=== PATIENT | female | born 1935 | race Caucasian/White ===

== ENCOUNTER 2016-12-15 07:44 | Day surgery (SDC) | payer OTHER ==
[~2016-12-15] VITALS: Ht 154.9 cm; Wt 66.0 kg
[~2016-12-15 07:44] MED LIST: ALBU8.5H3 INH; ASPI-496 PO; ASPI1CPM9 PO; ATOR10TA PO; LORA10TA75 PO; OMEP20CA9 PO
[2016-12-15 08:13] VITALS: BP 114/73
[2016-12-15] MEDS ORDERED: LACTATED RINGERS 1,000 ML IV SCH (08:15)
[2016-12-15] MEDS ORDERED: BUPIVACAINE/PF-EPI 0.5% 1:200K ONE (08:46)
[2016-12-15] MEDS ORDERED: FENTANYL PF 250 MCG/5ML ONE (11:13)
[2016-12-15] MEDS ORDERED: HYDROmorphone 1 MG/ML, 1ML IV PRN (11:30)
[2016-12-15] MEDS ORDERED: LABETALOL 5MG/ML, 20ML IV PRN (11:30)
[2016-12-15] MEDS ORDERED: hydrALAzine 20 MG/ML, 1ML IV PRN (11:30)
[2016-12-15] MEDS ORDERED: ONDANSETRON 2MG/ML, 2ML IVPush PRN (11:30)
[2016-12-15] MEDS ORDERED: ACETAMINOPHEN 325 MG TABLET PO PRN (11:30)
[2016-12-15] MEDS ORDERED: METOCLOPRAMIDE 5 MG/ML, 2ML IV PRN (11:30)
[2016-12-15] MEDS ORDERED: PROMETHAZINE 25 MG/ML, 1ML IV PRN (11:30)
[2016-12-15] MEDS ORDERED: MIDAZOLAM 1 MG/ML, 2ML IV PRN (11:30)
[2016-12-15] MEDS ORDERED: MEPERIDINE/PF 25MG/0.5ML IVPush PRN (11:30)
[2016-12-15] MEDS ORDERED: ALBUTEROL/IPRATROPIUM 2.5MG/0.5MG, 3 ML ONE (12:17)
[2016-12-15] MEDS ORDERED: OXYcodone 5 MG/5 ML ORAL.SOL UDC ONE ×2 (12:24→12:49)
[2016-12-15] MEDS ORDERED: FENTANYL PF 100 MCG/2ML ONE (12:24)
[2016-12-15] MEDS: FENTANYL PF 100 MCG/2ML IV PRN ×2 (12:26→12:36)
[2016-12-15] MEDS: OXYcodone 5 MG/5 ML ORAL.SOL UDC PO PRN ×2 (12:28→12:54)
[2016-12-15] MEDS ORDERED: HYDROmorphone 2 MG/ML, 1ML ONE (12:46)
[2016-12-15] MEDS ORDERED: ONDANSETRON 2MG/ML, 2ML ONE ×3 (12:52→15:19)
[2016-12-15] MEDS ORDERED: NEOSTIGMINE 1 MG/ML, 10ML ONE (15:19)
[2016-12-15] MEDS ORDERED: CEFAZOLIN 1,000 MG ONE (15:19)
[2016-12-15] MEDS ORDERED: DEXAMETHASONE 4 MG/ML, 1ML ONE (15:19)
[2016-12-15] MEDS ORDERED: SUCCINYLCHOLINE 20 MG/ML, 10ML ONE (15:19)
[2016-12-15] MEDS ORDERED: ROCURONIUM 10 MG/ML ONE (15:19)
[2016-12-15] MEDS ORDERED: KETOROLAC 30 MG/1 ML ONE (15:19)
[2016-12-15] MEDS ORDERED: GLYCOPYRROLATE 0.2MG/1ML ONE (15:19)
[2016-12-15] MEDS ORDERED: PROPOFOL 10 MG/ML, 20ML ONE (15:19)
[2016-12-15] MEDS ORDERED: PHENYLEPHRINE 10 MG/ML ONE (15:19)
[2016-12-15] MEDS ORDERED: DIPHENHYDRAMINE 50 MG/ML, 1ML ONE (16:10)
[2016-12-15] MEDS ORDERED: DIPHENHYDRAMINE 50 MG/ML, 1ML IVPush PRN (16:30)
== END 2016-12-15 17:40 | disposition home or self-care (01) ==
LOC: OUT 07:44
PROVIDERS: ATTEND Colon & Rectal Surgery
DX: K81.1 Chronic cholecystitis (principal); J45.909 Unspecified asthma, uncomplicated; E78.5 Hyperlipidemia, unspecified; Z86.73 Personal history of transient ischemic attack (TIA), and cerebral infarction without residual deficits; J44.9 Chronic obstructive pulmonary disease, unspecified; K21.9 Gastro-esophageal reflux disease without esophagitis; F17.210 Nicotine dependence, cigarettes, uncomplicated; Z90.710 Acquired absence of both cervix and uterus; Z98.49 Cataract extraction status, unspecified eye; Z96.1 Presence of intraocular lens; Z82.3 Family history of stroke; Z81.8 Family history of other mental and behavioral disorders; Z80.1 Family history of malignant neoplasm of trachea, bronchus and lung
CPT/HCPCS: 47562; 88304; 93005; 94640; J0330; J0690; J1100; J1170; J1200; J1885; J2370; J2405; J2704; J2710; J3010; J7120; J3490

== ENCOUNTER → 2018-11-01 | Outpatient (CLI) | payer MEDICARE ==
[~2018-11-01] MED LIST changes: -ALBU8.5H3 INH; +ALBU8.5H8 INH; +AZEL137S4 NAS; +FEXO180T72 PO; +PSEU120T9 PO
[2018-11-01 15:15] LABS: ALANINE AMINOTRANSFERASE 11 U/L (12-78); ALBUMIN 3.4 g/dL (3.4-5.0); ANION GAP 6 mmol/L (5-15); CALCIUM 9.3 mg/dL (8.5-10.1); CHLORIDE 105 mmol/L (98-107); CREATININE 0.91 mg/dL (0.55-1.02)
[2018-11-01 15:16] LABS: BASOPHILS # (AUTO) 0.03 x10^3/uL (0-0.1); BASOPHILS % (AUTO) 0 % (0-1); EOSINOPHILS # (AUTO) 0.18 x10^3/uL (0-0.4); EOSINOPHILS % (AUTO) 2 % (1-7); LYMPHOCYTES # (AUTO) 2.74 x10^3/uL (1-3.4); LYMPHOCYTES % (AUTO) 32 % (22-44); MD NO; MEAN CORPUSCULAR HEMOGLOBIN 30.6 pg (27.0-34.8); MEAN CORPUSCULAR HGB CONC 32.9 g/dL (32.4-35.8); MEAN CORPUSCULAR VOLUME 92.9 fL (80-100); MEAN PLATELET VOLUME 8.1 fL (7.4-10.4); MONOCYTES # (AUTO) 0.72 x10^3/uL (0.2-0.8); MONOCYTES % (AUTO) 8 % (2-9); NEUTROPHILS # (AUTO) 4.96 x10^3/uL (1.8-6.8); NEUTROPHILS % (AUTO) 58 % (42-75); PLATELET COUNT 258 x10^3/uL (130-400); RED BLOOD COUNT 5.25 x10^6/uL (3.82-5.3); RED CELL DISTRIBUTION WIDTH 13.3 % (9.6-15.2)
[2018-11-01 15:17] LABS: ALKALINE PHOSPHATASE 82 U/L (45-117); BILIRUBIN,TOTAL 0.3 mg/dL (0.2-1.0); TOTAL PROTEIN 7.1 g/dL (6.4-8.2)
[2018-11-01 15:22] LABS: INTERNATIONAL NORMALIZED RATIO 1.02 (0.93-1.1); PROTHROMBIN TIME 10.8 Seconds (9.6-11.5)
== END | disposition home or self-care (01) ==
LOC: STAR 14:19
PROVIDERS: ATTEND Surgery
DX: Z01.818 Encounter for other preprocedural examination (principal)
CPT/HCPCS: 36415; 80053; 85025; 85610; 93005

== ENCOUNTER 2018-11-08 08:56 | Day surgery (SDC) | payer MEDICARE ==
[~2018-11-08] VITALS: Ht 154.9 cm; Wt 62.3 kg
[2018-11-08] MEDS ORDERED: LACTATED RINGERS 1,000 ML IV SCH (09:05)
[2018-11-08 09:29] VITALS: BP 107/67
[2018-11-08] MEDS ORDERED: ACETAMINOPHEN 500 MG TABLET PO ONE (09:30)
[2018-11-08] MEDS ORDERED: GABAPENTIN 300 MG CAPSULE PO ONE (09:30)
[2018-11-08] MEDS ORDERED: BUPIVACAINE/PF-EPI 0.5% 1:200K ONE (10:02)
[2018-11-08] MEDS ORDERED: ISOSULFAN BLUE 10 MG/ML, 5ML IV ONE (10:02)
[2018-11-08] MEDS ORDERED: METHYLENE BLUE 10 MG/ML 10ML ONE (10:02)
[2018-11-08] MEDS ORDERED: FENTANYL PF 250 MCG/5ML ONE (11:36)
[2018-11-08] MEDS ORDERED: DEXAMETHASONE 4 MG/ML, 1ML ONE (12:45)
[2018-11-08] MEDS ORDERED: HALOPERIDOL 5 MG/ML IV PRN (13:30)
[2018-11-08] MEDS ORDERED: PROMETHAZINE 25 MG/ML, 1ML IV PRN (13:30)
[2018-11-08] MEDS ORDERED: LABETALOL 5MG/ML, 20ML IV PRN (13:30)
[2018-11-08] MEDS ORDERED: PROCHLORPERAZINE 5 MG/ML, 2ML IV PRN (13:30)
[2018-11-08] MEDS ORDERED: HYDROmorphone 2 MG/ML, 1ML IVPush PRN (13:30)
[2018-11-08] MEDS ORDERED: MEPERIDINE/PF 25MG/0.5ML IVPush PRN (13:30)
[2018-11-08] MEDS ORDERED: DIPHENHYDRAMINE 50 MG/ML, 1ML IVPush PRN (13:30)
[2018-11-08] MEDS ORDERED: METOPROLOL 1 MG/ML, 5ML IV PRN (13:30)
[2018-11-08] MEDS ORDERED: OXYcodone 5 MG/5 ML ORAL.SOL UDC PO PRN (13:30)
[2018-11-08] MEDS ORDERED: hydrALAzine 20 MG/ML, 1ML IV PRN (13:30)
[2018-11-08] MEDS ORDERED: CEFAZOLIN 1,000 MG ONE (13:45)
[2018-11-08] MEDS ORDERED: GLYCOPYRROLATE 0.2MG/1ML, 5ML ONE (13:45)
[2018-11-08] MEDS ORDERED: PROPOFOL 10 MG/ML, 20ML ONE (13:45)
[2018-11-08] MEDS ORDERED: ONDANSETRON 2MG/ML, 2ML ONE (13:45)
[2018-11-08] MEDS ORDERED: NEOSTIGMINE 1 MG/ML, 10ML ONE (13:45)
[2018-11-08] MEDS ORDERED: ROCURONIUM 10MG/ML,5ML ONE (13:45)
[2018-11-08] MEDS ORDERED: SUCCINYLCHOLINE 20 MG/ML, 10ML ONE (13:46)
[2018-11-08] MEDS ORDERED: FENTANYL PF 100 MCG/2ML ONE (14:44)
[2018-11-08] MEDS ORDERED: OXYcodone 5 MG/5 ML ORAL.SOL UDC ONE (14:44)
[2018-11-08] MEDS: FENTANYL PF 100 MCG/2ML IV PRN ×2 (14:48→14:59)
[2018-11-08] MEDS ORDERED: ONDANSETRON ODT 4 MG ONE (18:16)
== END 2018-11-08 18:45 | disposition home or self-care (01) ==
LOC: OUT 08:56 → EDSTATUS 11:00 → OUT 18:45
PROVIDERS: ATTEND Surgery
DX: C50.912 Malignant neoplasm of unspecified site of left female breast (principal); R59.1 Generalized enlarged lymph nodes; J44.9 Chronic obstructive pulmonary disease, unspecified; Z86.73 Personal history of transient ischemic attack (TIA), and cerebral infarction without residual deficits; Z98.890 Other specified postprocedural states; Z98.49 Cataract extraction status, unspecified eye; Z90.49 Acquired absence of other specified parts of digestive tract; Z90.710 Acquired absence of both cervix and uterus; Z88.6 Allergy status to analgesic agent; Z88.0 Allergy status to penicillin; Z88.8 Allergy status to other drugs, medicaments and biological substances; F17.210 Nicotine dependence, cigarettes, uncomplicated
CPT/HCPCS: 19301; 38525; 38792; 88305; 88307; A9541; J0330; J0690; J1100; J2405; J2704; J2710; J3010; J3490; J7120; Q9968

== ENCOUNTER → 2018-11-26 | Outpatient (CLI) | payer MEDICARE | END | disposition home or self-care (01) | LOC: ROC 08:30 | PROVIDERS: ATTEND Radiology Radiation Oncology | DX: C50.312 Malignant neoplasm of lower-inner quadrant of left female breast (principal); J44.9 Chronic obstructive pulmonary disease, unspecified; F17.210 Nicotine dependence, cigarettes, uncomplicated; Z88.6 Allergy status to analgesic agent; Z88.0 Allergy status to penicillin; Z90.49 Acquired absence of other specified parts of digestive tract; Z90.710 Acquired absence of both cervix and uterus; Z90.12 Acquired absence of left breast and nipple; Z86.73 Personal history of transient ischemic attack (TIA), and cerebral infarction without residual deficits | CPT/HCPCS: 99214; G0463 ==

== ENCOUNTER 2018-12-20 10:43 | Observation (INO) | payer MEDICARE ==
[~2018-12-20] VITALS: Ht 154.9 cm; Wt 61.7 kg
--- NOTE | 2018-12-20 10:54 | NUR ---
CONTACT WITH PT, 83 YR OLD FEMALE HERE WITH C/O "RECTAL BLEEDING" BEGAN THIS AM. "THE PROBLEM STARTED LAST NIGHT WITH SEVERE CRAMPS IN MY STOMACH. ALL OF A SUDDEN, I HAD PRESSURE, WITHIN A HALF HOUR, IT PURGED MY SYSTEM, BUT IT WAS NORMAL (STOOL COLOR CONSISTENCY) ABOUT AN HOUR AGO I STARTED GETTING MILD CRAMPS. THE STOOL WAS COATED WITH BLOOD"
[2018-12-20] MEDS ORDERED: ANAS1TAB PO (11:00)
[2018-12-20] MEDS ORDERED: SODIUM CHLORIDE FLUSH 10ML SYR IVF ONE (11:30)
[2018-12-20 11:43] LABS: BASOPHILS # (AUTO) 0.02 x10^3/uL (0-0.1); BASOPHILS % (AUTO) 0 % (0-1); EOSINOPHILS # (AUTO) 0.12 x10^3/uL (0-0.4); EOSINOPHILS % (AUTO) 1 % (1-7); LYMPHOCYTES % (AUTO) 18 % (22-44); MD NO; MEAN CORPUSCULAR HEMOGLOBIN 30.1 pg (27.0-34.8); MEAN CORPUSCULAR HGB CONC 32.9 g/dL (32.4-35.8); MEAN CORPUSCULAR VOLUME 91.7 fL (80-100); MEAN PLATELET VOLUME 8.1 fL (7.4-10.4); MONOCYTES # (AUTO) 0.92 x10^3/uL (0.2-0.8); MONOCYTES % (AUTO) 10 % (2-9); NEUTROPHILS # (AUTO) 6.71 x10^3/uL (1.8-6.8); NEUTROPHILS % (AUTO) 71 % (42-75); PLATELET COUNT 179 x10^3/uL (130-400); RED BLOOD COUNT 5.15 x10^6/uL (3.82-5.3); RED CELL DISTRIBUTION WIDTH 14.3 % (9.6-15.2)
[2018-12-20 11:51] LABS: INTERNATIONAL NORMALIZED RATIO 0.98 (0.93-1.1); PROTHROMBIN TIME 10.3 Seconds (9.6-11.5)
[2018-12-20 11:52] LABS: ALANINE AMINOTRANSFERASE 14 U/L (12-78); ALBUMIN 3.5 g/dL (3.4-5.0); ANION GAP 6 mmol/L (5-15); CHLORIDE 108 mmol/L (98-107)
[2018-12-20 11:55] LABS: ALKALINE PHOSPHATASE 73 U/L (45-117); BILIRUBIN,TOTAL 0.7 mg/dL (0.2-1.0); CREATININE 0.89 mg/dL (0.55-1.02); TOTAL PROTEIN 6.7 g/dL (6.4-8.2)
[2018-12-20] MEDS ORDERED: OMNIPAQUE 350 MG/ML, 100ML BOTTLE ONE (12:34)
--- NOTE | 2018-12-20 13:12 | NUR ---
PT TO BATHROOM, GAIT SLOW AND STEADY
--- NOTE | 2018-12-20 14:54 | NUR ---
REPORT CALLED TO RAQUEL GLEASON, POC DISCUSSED.
[2018-12-20] MEDS ORDERED: ENALAPRILAT 1.25 MG/ML, 2ML IVPush PRN (15:00)
[2018-12-20] MEDS ORDERED: ACETAMINOPHEN 325 MG TABLET PO PRN (15:00)
[2018-12-20] MEDS ORDERED: LABETALOL 5MG/ML, 20ML IVPush PRN (15:00)
[2018-12-20] MEDS ORDERED: ONDANSETRON 2MG/ML, 2ML IVPush PRN (15:00)
[2018-12-20] MEDS ORDERED: NICOTINE 14MG/24 HR PATCH.TD24 TD SCH (15:00)
--- NOTE | 2018-12-20 15:03 | NUR ---
PTS SON'S NAME IS [facility] [phone]
[2018-12-20 15:39] VITALS: BP 128/72
[2018-12-20 19:47] VITALS: BP 119/63
[2018-12-20] MEDS: D5%-0.9% NACL 1,000 ML IV SCH (19:52)
[2018-12-20] MEDS: metroNIDAZOLE 500 MG TABLET PO SCH (20:21)
[2018-12-20] MEDS ORDERED: CIPROFLOXACIN 500 MG TABLET PO SCH (21:00)
[2018-12-21 01:33] VITALS: BP 97/56
[2018-12-21] MEDS: D5%-0.9% NACL 1,000 ML IV SCH (04:46)
[2018-12-21] MEDS: metroNIDAZOLE 500 MG TABLET PO SCH ×2 (04:46→13:39)
[2018-12-21 06:26] LABS: BASOPHILS # (AUTO) 0.01 x10^3/uL (0-0.1); BASOPHILS % (AUTO) 0 % (0-1); EOSINOPHILS # (AUTO) 0.17 x10^3/uL (0-0.4); EOSINOPHILS % (AUTO) 2 % (1-7); LYMPHOCYTES # (AUTO) 1.44 x10^3/uL (1-3.4); LYMPHOCYTES % (AUTO) 20 % (22-44); MD NO; MEAN CORPUSCULAR HGB CONC 32.5 g/dL (32.4-35.8); MEAN CORPUSCULAR VOLUME 92.2 fL (80-100); MEAN PLATELET VOLUME 8.7 fL (7.4-10.4); MONOCYTES % (AUTO) 8 % (2-9); NEUTROPHILS # (AUTO) 4.98 x10^3/uL (1.8-6.8); NEUTROPHILS % (AUTO) 69 % (42-75); PLATELET COUNT 135 x10^3/uL (130-400); RED BLOOD COUNT 3.81 x10^6/uL (3.82-5.3); RED CELL DISTRIBUTION WIDTH 14.5 % (9.6-15.2)
[2018-12-21 06:34] LABS: CHLORIDE 123 mmol/L (98-107); CREATININE 0.87 mg/dL (0.55-1.02)
[2018-12-21 06:44] VITALS: BP 102/69
[2018-12-21 06:54] LABS: ANION GAP 7 mmol/L (5-15)
[2018-12-21 07:17] LABS: CALCIUM 5.9 mg/dL (8.5-10.1)
[2018-12-21] MEDS ORDERED: CIPROFLOXACIN/PMX 400MG/200ML 200 ML IV SCH (07:30)
[2018-12-21 07:58] LABS: ANION GAP 3 mmol/L (5-15); CHLORIDE 114 mmol/L (98-107); CREATININE 0.71 mg/dL (0.55-1.02)
[2018-12-21] MEDS ORDERED: OMEPRAZOLE 20 MG CAPSULE.DR PO SCH (09:00)
[2018-12-21] MEDS ORDERED: CIPR500T3 PO (13:22)
[2018-12-21] MEDS ORDERED: METR500T PO (13:22)
== END 2018-12-21 14:45 | disposition home or self-care (01) ==
LOC: ED 12:37 → EDIP 14:02 → INTOOBSV 14:02 → 3NE 15:09 → DCLOUNGE 12-21 14:32
PROVIDERS: ADMIT Hospitalist; ATTEND Hospitalist
DX: K52.9 Noninfective gastroenteritis and colitis, unspecified (principal); K62.5 Hemorrhage of anus and rectum; K92.1 Melena; R19.7 Diarrhea, unspecified; C50.919 Malignant neoplasm of unspecified site of unspecified female breast; F17.210 Nicotine dependence, cigarettes, uncomplicated; I11.0 Hypertensive heart disease with heart failure; I21.9 Acute myocardial infarction, unspecified; I25.10 Atherosclerotic heart disease of native coronary artery without angina pectoris; I50.9 Heart failure, unspecified; K55.9 Vascular disorder of intestine, unspecified; N39.3 Stress incontinence (female) (male); Z85.3 Personal history of malignant neoplasm of breast; Z86.010 Personal history of colon polyps; Z86.73 Personal history of transient ischemic attack (TIA), and cerebral infarction without residual deficits; Z87.11 Personal history of peptic ulcer disease; Z90.49 Acquired absence of other specified parts of digestive tract; Z90.710 Acquired absence of both cervix and uterus
CPT/HCPCS: 36415; 74174; 80048; 80053; 82962; 85025; 85610; 85730; 96361; 96365; 99284; G0378; J0744; J7042; Q9967

== ENCOUNTER 2019-01-21 09:34 | Outpatient (CLI) | payer MEDICARE ==
[~2019-01-21 09:34] MED LIST changes: +ANAS1TAB PO; +CIPR500T3 PO; +METR500T PO
== END 2019-01-21 23:59 | disposition home or self-care (01) ==
LOC: CFH 09:34
PROVIDERS: ATTEND Radiology Radiation Oncology
DX: Z12.2 Encounter for screening for malignant neoplasm of respiratory organs (principal); J98.4 Other disorders of lung; I25.10 Atherosclerotic heart disease of native coronary artery without angina pectoris; F17.210 Nicotine dependence, cigarettes, uncomplicated
CPT/HCPCS: G0297

== ENCOUNTER 2019-08-22 09:11 | Emergency (ER) | payer MEDICARE ==
[~2019-08-22] VITALS: Ht 154.9 cm; Wt 63.0 kg
[2019-08-22 09:17] VITALS: BP 126/64
--- NOTE | 2019-08-22 09:26 | NUR ---
PT HERE FOR PAIN TO LEFT ANKLE AFTER FALLING DOWN STAIRS ON ICE THIS MORNING. DENIES LOC. DENIES BLOOD THINNER USE. CURRENLTY RESTING ON GURNEY. NADN. DORSALIS PEDAL PULSE ON LEFT SIDE 2+. SLIGHT SWELLING NOTED. PT PROVIDED WITH WARM BLANKET.
[2019-08-22] MEDS ORDERED: ACETAMINOPHEN 325 MG TABLET ONE (11:14)
[2019-08-22] MEDS ORDERED: IBUPROFEN 200 MG TABLET ONE (11:15)
[2019-08-22] MEDS ORDERED: IBUPROFEN 200 MG TABLET PO ONE (11:30)
[2019-08-22] MEDS ORDERED: ACETAMINOPHEN 325 MG TABLET PO ONE (11:30)
== END 2019-08-22 11:24 | disposition home or self-care (01) ==
LOC: ED 11:12
DX: S93.492A Sprain of other ligament of left ankle, initial encounter (principal); Z86.73 Personal history of transient ischemic attack (TIA), and cerebral infarction without residual deficits; Z87.19 Personal history of other diseases of the digestive system; W01.0XXA Fall on same level from slipping, tripping and stumbling without subsequent striking against object, initial encounter; Y93.89 Activity, other specified; Y92.098 Other place in other non-institutional residence as the place of occurrence of the external cause; Y99.8 Other external cause status
CPT/HCPCS: 99283

== ENCOUNTER 2019-10-28 03:39 | Emergency (ER) | payer MEDICARE ==
[~2019-10-28] VITALS: Ht 154.9 cm; Wt 65.0 kg
[2019-10-28] MEDS ORDERED: KETOROLAC 30 MG/1 ML IVPush ONE (04:00)
[2019-10-28] MEDS ORDERED: ONDANSETRON 2MG/ML, 2ML IVPush ONE (04:00)
[2019-10-28] MEDS ORDERED: KETOROLAC 30 MG/1 ML ONE (04:02)
[2019-10-28] MEDS ORDERED: ONDANSETRON 2MG/ML, 2ML ONE (04:02)
[2019-10-28 04:15] LABS: MICROSCOPIC AUTO
[2019-10-28 04:18] LABS: BASOPHILS # (AUTO) 0.05 x10^3/uL (0-0.1); BASOPHILS % (AUTO) 1 % (0-1); EOSINOPHILS # (AUTO) 0.35 x10^3/uL (0-0.4); EOSINOPHILS % (AUTO) 3 % (1-7); LYMPHOCYTES # (AUTO) 3.69 x10^3/uL (1-3.4); LYMPHOCYTES % (AUTO) 36 % (22-44); MD NO; MEAN CORPUSCULAR HEMOGLOBIN 31.6 pg (27.0-34.8); MEAN CORPUSCULAR HGB CONC 33.5 g/dL (32.4-35.8); MEAN CORPUSCULAR VOLUME 94.3 fL (80-100); MEAN PLATELET VOLUME 7.7 fL (7.4-10.4); MONOCYTES # (AUTO) 1.04 x10^3/uL (0.2-0.8); MONOCYTES % (AUTO) 10 % (2-9); NEUTROPHILS # (AUTO) 5.19 x10^3/uL (1.8-6.8); NEUTROPHILS % (AUTO) 50 % (42-75); PLATELET COUNT 192 x10^3/uL (130-400); RED BLOOD COUNT 5.04 x10^6/uL (3.82-5.3); RED CELL DISTRIBUTION WIDTH 14.3 % (9.6-15.2)
[2019-10-28 04:19] LABS: CULTURE INDICATED? YES
[2019-10-28 04:31] LABS: ALANINE AMINOTRANSFERASE 17 U/L (12-78); ALBUMIN 3.5 g/dL (3.4-5.0); ANION GAP 6 mmol/L (5-15); CALCIUM 8.5 mg/dL (8.5-10.1); CHLORIDE 111 mmol/L (98-107); CREATININE 1.01 mg/dL (0.55-1.02)
[2019-10-28 04:33] LABS: ALKALINE PHOSPHATASE 63 U/L (45-117); BILIRUBIN,TOTAL 0.3 mg/dL (0.2-1.0); TOTAL PROTEIN 6.8 g/dL (6.4-8.2)
[2019-10-28 05:15] VITALS: BP 137/57
[2019-10-28] MEDS ORDERED: FENTANYL PF 100 MCG/2ML ONE (05:21)
[2019-10-28] MEDS ORDERED: FENTANYL PF 100 MCG/2ML IVPush ONE (05:30)
--- NOTE | 2019-10-28 06:25 | NUR ---
Discharge instructions given. All questions and concerns addressed. Patient ambulatory with a steady gait. Belongings with patient.
== END 2019-10-28 06:27 | disposition home or self-care (01) ==
LOC: ED 05:39
DX: N20.0 Calculus of kidney (principal); Z90.49 Acquired absence of other specified parts of digestive tract
CPT/HCPCS: 36415; 74176; 80053; 81001; 85025; 87086; 96374; 96375; 99284; J1885; J2405; J3010

== ENCOUNTER 2021-03-04 10:29 | Day surgery (SDC) | payer MEDICARE ==
[2021-03-02 12:31] LABS: BASOPHILS % (AUTO) 1 % (0-1); EOSINOPHILS % (AUTO) 3 % (1-7); LYMPHOCYTES % (AUTO) 29 % (22-44); MEAN CORPUSCULAR HEMOGLOBIN 31.4 pg (27.0-34.8); MEAN CORPUSCULAR HGB CONC 33.3 g/dL (32.4-35.8); MEAN PLATELET VOLUME 7.7 fL (7.4-10.4); MONOCYTES % (AUTO) 11 % (2-9); NEUTROPHILS % (AUTO) 57 % (42-75); PLATELET COUNT 237 x10^3/uL (130-400); RED BLOOD COUNT 5.23 x10^6/uL (3.82-5.3); RED CELL DISTRIBUTION WIDTH 14.2 % (9.6-15.2)
[2021-03-02 12:41] LABS: INTERNATIONAL NORMALIZED RATIO 0.98 (0.93-1.1); PROTHROMBIN TIME 10.5 Seconds (9.6-11.5)
[2021-03-02 12:45] LABS: ALANINE AMINOTRANSFERASE 17 U/L (12-78); ALBUMIN 3.5 g/dL (3.4-5.0); CALCIUM 8.8 mg/dL (8.5-10.1)
[2021-03-02 12:47] LABS: ALKALINE PHOSPHATASE 66 U/L (45-117); BILIRUBIN,TOTAL 0.3 mg/dL (0.2-1.0); CREATININE 0.91 mg/dL (0.55-1.02); TOTAL PROTEIN 7.1 g/dL (6.4-8.2)
[2021-03-02 12:57] LABS: CHLORIDE 108 mmol/L (98-107)
[2021-03-02 12:58] LABS: ANION GAP 6 mmol/L (5-15)
[~2021-03-04] VITALS: Ht 154.9 cm; Wt 65.9 kg
[~2021-03-04 10:29] MED LIST changes: +ASCO100018 PO; +CALC500T93 PO; +CHOL10003 PO; -CIPR500T3 PO; +CIPR500T4 PO; +TIOT18CA INH
[2021-03-04 11:09] VITALS: BP 126/70
[2021-03-04] MEDS ORDERED: CHLORHEXIDINE 15 ML UDC PO ONE (11:30)
[2021-03-04] MEDS ORDERED: LACTATED RINGERS 1,000 ML IV SCH (11:30)
[2021-03-04] MEDS ORDERED: FENTANYL PF 250 MCG/5ML ONE (11:32)
[2021-03-04] MEDS ORDERED: DEXAMETHASONE 4 MG/ML, 1ML ONE (11:33)
[2021-03-04] MEDS ORDERED: ONDANSETRON 2MG/ML, 2ML ONE (11:33)
[2021-03-04] MEDS ORDERED: CEFAZOLIN 1,000 MG ONE (11:33)
[2021-03-04] MEDS ORDERED: PROPOFOL 10 MG/ML, 20ML ONE (11:33)
[2021-03-04] MEDS ORDERED: EPINEPHRINE 1 MG/ML, 1ML ONE (12:07)
[2021-03-04] MEDS ORDERED: BUPIVACAINE/PF 0.5% ONE (12:07)
[2021-03-04] MEDS ORDERED: PHENYLEPHRINE 10 MG/ML ONE (12:25)
[2021-03-04] MEDS ORDERED: HALOPERIDOL 5 MG/ML IV PRN (12:30)
[2021-03-04] MEDS ORDERED: LABETALOL 5MG/ML, 20ML IV PRN (12:30)
[2021-03-04] MEDS ORDERED: OXYcodone 5 MG/5 ML ORAL.SOL UDC PO PRN (12:30)
[2021-03-04] MEDS ORDERED: MEPERIDINE/PF 25MG/0.5ML IVPush PRN (12:30)
[2021-03-04] MEDS ORDERED: ACETAMINOPHEN 325 MG TABLET PO PRN (12:30)
[2021-03-04] MEDS ORDERED: hydrALAzine 20 MG/ML, 1ML IV PRN (12:30)
[2021-03-04] MEDS ORDERED: PROMETHAZINE 25 MG/ML, 1ML IVPush PRN (12:30)
[2021-03-04] MEDS ORDERED: HYDROmorphone 1 MG/ML, 1ML INJ IVPush PRN (12:30)
[2021-03-04] MEDS ORDERED: FENTANYL PF 100 MCG/2ML IV PRN (12:30)
[2021-03-04] MEDS ORDERED: TRAM-47 PO (13:29)
[2021-03-04] MEDS ORDERED: FENTANYL PF 100 MCG/2ML ONE (13:49)
[2021-03-04] MEDS ORDERED: OXYcodone 5 MG/5 ML ORAL.SOL UDC ONE (13:50)
[2021-03-04] MEDS ORDERED: ACETAMINOPHEN 325 MG TABLET ONE (15:46)
== END 2021-03-04 16:05 | disposition home or self-care (01) ==
LOC: OUT 10:29
PROVIDERS: ATTEND Surgery
DX: C50.312 Malignant neoplasm of lower-inner quadrant of left female breast (principal); J44.9 Chronic obstructive pulmonary disease, unspecified; K21.9 Gastro-esophageal reflux disease without esophagitis; F17.210 Nicotine dependence, cigarettes, uncomplicated; Z17.0 Estrogen receptor positive status [ER+]; Z20.822 Contact with and (suspected) exposure to COVID-19; Z79.899 Other long term (current) drug therapy; Z88.0 Allergy status to penicillin; Z88.5 Allergy status to narcotic agent; Z88.8 Allergy status to other drugs, medicaments and biological substances; Z98.890 Other specified postprocedural states; Z80.1 Family history of malignant neoplasm of trachea, bronchus and lung; Z82.3 Family history of stroke
CPT/HCPCS: 19301; 36415; 80053; 85025; 85610; 88305; 88307; 93005; J0171; J0690; J1100; J2370; J2405; J2704; J3010; J7120; U0003; U0005

== ENCOUNTER → 2021-04-02 | Outpatient (CLI) | payer MEDICARE ==
[~2021-04-02] MED LIST changes: +TRAM-47 PO
== END | disposition home or self-care (01) ==
LOC: ROC 08:39
PROVIDERS: ATTEND Radiology Radiation Oncology
DX: C50.312 Malignant neoplasm of lower-inner quadrant of left female breast (principal); K21.9 Gastro-esophageal reflux disease without esophagitis; J44.9 Chronic obstructive pulmonary disease, unspecified; Z17.0 Estrogen receptor positive status [ER+]; Z79.899 Other long term (current) drug therapy; Z87.891 Personal history of nicotine dependence
CPT/HCPCS: 99214; G0463

== ENCOUNTER → 2021-04-22 | Outpatient (CLI) | payer MEDICARE | END | disposition home or self-care (01) | LOC: RAD 10:46 | PROVIDERS: ATTEND Internal Medicine Hematology & Oncology | DX: C50.812 Malignant neoplasm of overlapping sites of left female breast (principal); M85.80 Other specified disorders of bone density and structure, unspecified site | CPT/HCPCS: 78306; A9503 ==

== ENCOUNTER 2021-05-27 07:40 | Outpatient (CLI) | payer MEDICARE | END 2021-05-27 23:59 | disposition home or self-care (01) | LOC: ROC 07:40 | PROVIDERS: ATTEND Radiology Radiation Oncology | DX: Z08 Encounter for follow-up examination after completed treatment for malignant neoplasm (principal); Z85.3 Personal history of malignant neoplasm of breast; J44.9 Chronic obstructive pulmonary disease, unspecified; K21.9 Gastro-esophageal reflux disease without esophagitis; Z17.0 Estrogen receptor positive status [ER+]; Z79.899 Other long term (current) drug therapy; Z87.891 Personal history of nicotine dependence | CPT/HCPCS: 99213; G0463 ==